=== PATIENT | female | born 1970 | race Hispanic/Latino ===

== ENCOUNTER 2021-04-23 20:48 | Emergency (ER) | payer OTHER ==
[2021-04-24] MEDS ORDERED: MEPERIDINE HCL 50 MG/ML ONE (02:07)
[2021-04-24] MEDS ORDERED: PROMETHAZINE INJ 25 MG/ML AMP ONE (02:08)
[2021-04-24] MEDS ORDERED: MEPERIDINE HCL 25 MG/ML SYR ONE (02:08)
--- NOTE | 2021-04-24 04:55 | EDPHYS ---
Physician Documentation [facility] Name: Effie Coleman Age: 51 yrs Sex: Female : 1970 Arrival Date: 04/23/2021 Time: 20:51 Bed 7 Private MD: ED Physician Kimani Syed HPI: 04/24 04:23 This 51 yrs old Female presents to ER via Ambulatory with complaints of pkl Shoulder Pain, Numbness Of Hand. 04:23 The patient or guardian complains of pain, that is acute. both shoulders. Onset: The pkl symptoms/episode began/occurred 1 week(s) ago. Associated signs and symptoms: Pertinent positives: neck pain, Numbness in left hand. INSURANCE VERIFICATION REP: 04/23 21:47 LMP 04/21/2021 vg1 Historical: - Allergies: 21:45 Percocet; vg1 21:45 [place]; vg1 21:45 meloxicam; vg1 - Home Meds: 21:45 Prozac Oral [Active]; cetirizine oral [Active]; diclofenac oral [Active]; vg1 - PMHx: 21:45 Arthritis; vg1 - Immunization history:: Adult Immunizations up to date, Client reports receiving the 2nd dose of the Covid vaccine. - Social history:: Smoking status: Reported history of juuling and/or vaping. ROS: 04/24 04:23 Eyes: Negative for injury, pain, redness, and discharge, ENT: Negative for injury, pkl pain, and discharge. Neck: Positive for pain with movement. Cardiovascular: Negative for chest pain. Respiratory: Negative for cough, shortness of breath. Abdomen/GI: Negative for abdominal pain, nausea, vomiting, and diarrhea. Back: Negative for acute changes. : Negative for urinary symptoms. MS/extremity: Positive for pain, of the both shoulder. Skin: Negative for rash. Neuro: Positive for numbness, of the left hand. Exam: 04:23 Head/Face: Normocephalic, atraumatic. Eyes: Pupils equal round and reactive to light, pkl extra-ocular motions intact. Lids and lashes normal. Conjunctiva and sclera are non-icteric and not injected. Cornea within normal limits. Periorbital areas with no swelling, redness, or edema. ENT: Nares patent. No nasal discharge, no septal abnormalities noted. Tympanic membranes are normal and external auditory canals are clear. Oropharynx with no redness, swelling, or masses, exudates, or evidence of obstruction, uvula midline. Mucous membranes moist. Neck: Trachea midline, no thyromegaly or masses palpated, and no cervical lymphadenopathy. Supple, full range of motion without nuchal rigidity, or vertebral point tenderness. No Meningismus. Chest/axilla: Normal chest wall appearance and motion. Nontender with no deformity. No lesions are appreciated. Cardiovascular: Regular rate and rhythm with a normal S1 and S2. No gallops, murmurs, or rubs. Normal PMI, no JVD. No pulse deficits. Respiratory: Lungs have equal breath sounds bilaterally, clear to auscultation and percussion. No rales, rhonchi or wheezes noted. No increased work of breathing, no retractions or nasal flaring. Abdomen/GI: Soft, non-tender, with normal bowel sounds. No distension or tympany. No guarding or rebound. No evidence of tenderness throughout. Back: No spinal tenderness. No costovertebral tenderness. Full range of motion. Skin: Warm, dry with normal turgor. Normal color with no rashes, no lesions, and no evidence of cellulitis. 04:23 Musculoskeletal/extremity: Extremities: grossly normal except: noted in the both shoulders: 04:23 Skin: Exam negative for rash. 04:23 Neuro: Orientation: is normal, Mentation: is normal, Cranial nerves: grossly normal, Motor: is normal, Sensation: numbness, that is mild, of the left hand. Vital Signs: 04/23 21:41 BP 133 / 86; Pulse 86; Resp 16; Temp 97.9; Pulse Ox 98% ; Weight 141.07 kg; Height 5 vg1 ft. 4 in. (162.56 cm); Pain 10/10; 04/24 04:48 BP 127 / 76; Pulse 80; Resp 18; Pulse Ox 99% ; ea 04/23 21:41 Body Mass Index 53.38 (141.07 kg, 162.56 cm) vg1 MDM: 00:30 Patient medically screened. pkl 04:50 Data reviewed: vital signs, nurses notes, radiologic studies, CT scan, plain films. ED pkl course: Discussed imaging studies with patient. Advised to follow up with Neurologist in 1 to 2 days. Patient understood instructions. 04/24 01:06 Order name: CT C Spine pkl 04/24 01:06 Order name: Shoulder Right (2 View) XRAY pkl 04/24 01:06 Order name: Shoulder Left (2 View) XRAY pkl Administered Medications: 02:00 Drug: Demerol (meperidine) 75 mg Route: IM; Site: left deltoid; em 03:20 Follow up: Response: No adverse reaction; Marked relief of symptoms; Pain is decreased em 02:00 Drug: Phenergan (promethazine) 12.5 mg Route: IM; Site: right deltoid; em 03:20 Follow up: Response: No adverse reaction; Marked relief of symptoms; Pain is decreased em Disposition Summary: 04/24/21 04:54 Discharge Ordered Location: Home pkl Problem: chronic pkl Symptoms: are unchanged pkl Condition: Stable pkl Diagnosis - Pain both shoulder. Multilevel degenerative changes cervical spines pkl Followup: pkl - With: Private Physician - When: 1 - 2 days - Reason: Re-evaluation by your physician Discharge Instructions: - Discharge Summary Sheet ea Forms: - Medication Reconciliation Form pkl - Thank You Letter pkl - Antibiotic Education pkl - Prescription Opioid Use pkl Prescriptions: - Tramadol 50 mg Oral Tablet - take 1 tablet by ORAL route every 8 hours as needed; 12 tablet; Refills: 0, pkl Product Selection Permitted Signatures: Dispatcher [employer] Kimani Henry MD MD pkl Morales Rosenberg RN RN Annamaria Glass RN RN vg1 Corrections: (The following items were deleted from the chart) 04:24 03:17 This 51 yrs old Female presents to ER via Ambulatory with complaints of pkl Shoulder Pain, Numbness Of Hand. pkl
--- NOTE | 2021-04-24 04:55 | ER ---
Nurse's Notes [facility] Name: Effie Coleman Age: 51 yrs Sex: Female : 1970 Arrival Date: 04/23/2021 Time: 20:51 Bed 7 Private MD: Diagnosis: Pain both shoulder. Multilevel degenerative changes cervical spines Presentation: 04/23 21:41 Chief complaint: Patient states: States Left hand numbness and ANANYA shoulder pain for vg1 about a week. Coronavirus screen: Client denies travel out of the [place] in the last 14 days. Ebola Screen: Patient negative for fever greater than or equal to 101.5 degrees Fahrenheit, and additional compatible Ebola Virus Disease symptoms. Initial Sepsis Screen: Does the patient meet any 2 criteria? No. Patient's initial sepsis screen is negative. Does the patient have a suspected source of infection? No. Patient's initial sepsis screen is negative. Risk Assessment: Do you want to hurt yourself or someone else? Patient reports no desire to harm self or others. Onset of symptoms was April 17, 2021. 21:41 Method Of Arrival: Ambulatory vg1 21:41 Acuity: TEO 4 vg1 Triage Assessment: 21:47 General: Appears in no apparent distress. uncomfortable, Behavior is calm, cooperative. vg1 Pain: Complains of pain in ANANYA shoulders and Left hand. COBBLER MCKAY: 21:47 LMP 04/21/2021 vg1 Historical: - Allergies: 21:45 Percocet; vg1 21:45 [place]; vg1 21:45 meloxicam; vg1 - Home Meds: 21:45 Prozac Oral [Active]; cetirizine oral [Active]; diclofenac oral [Active]; vg1 - PMHx: 21:45 Arthritis; vg1 - Immunization history:: Adult Immunizations up to date, Client reports receiving the 2nd dose of the Covid vaccine. - Social history:: Smoking status: Reported history of juuling and/or vaping. Screenin/02 00:30 Abuse screen: Denies threats or abuse. Nutritional screening: No deficits noted. em Tuberculosis screening: No symptoms or risk factors identified. Fall Risk None identified. Assessment: 04/23 21:10 Reassessment: Called pt to triage, no response. vg1 04/24 00:31 General: Appears in no apparent distress. comfortable, Behavior is calm, cooperative, em appropriate for age. Pain: Complains of pain in anterior aspect of right shoulder, anterior aspect of left shoulder and right hand Pain currently is 10 out of 10 on a pain scale. Neuro: Level of Consciousness is awake, alert, obeys commands, Oriented to person, place, time, situation. Cardiovascular: Capillary refill < 3 seconds Patient's skin is warm and dry. Respiratory: Airway is patent Respiratory effort is even, unlabored, Respiratory pattern is regular, symmetrical. GI: Patient currently denies nausea. Derm: Skin is intact, is healthy with good turgor, Skin is pink, warm \T\ dry. Musculoskeletal: Capillary refill < 3 seconds, Range of motion: intact in all extremities. 01:52 Reassessment: wheeled to CT. em 03:19 Reassessment: Patient appears in no apparent distress at this time. Patient and/or em family updated on plan of care and expected duration. Pain level reassessed. Patient is alert, oriented x 3, equal unlabored respirations, skin warm/dry/pink. Patient states feeling better. 04:50 Reassessment: Patient and/or family updated on plan of care and expected duration. Pain ea level reassessed. Patient is alert, oriented x 3, equal unlabored respirations, skin warm/dry/pink. Vital Signs: 04/23 21:41 BP 133 / 86; Pulse 86; Resp 16; Temp 97.9; Pulse Ox 98% ; Weight 141.07 kg; Height 5 vg1 ft. 4 in. (162.56 cm); Pain 10/10; 04/24 04:48 BP 127 / 76; Pulse 80; Resp 18; Pulse Ox 99% ; ea 04/23 21:41 Body Mass Index 53.38 (141.07 kg, 162.56 cm) vg1 ED Course: 04/23 20:51 Patient arrived in ED. wm 21:45 Triage completed. vg1 21:47 Arm band placed on Patient placed in waiting room, Patient notified of wait time. vg1 04/24 00:27 Morales Rosenberg, NEDRA is Primary Nurse. em 00:30 Kimani Syed MD is Attending Physician. pkl 00:30 Patient has correct armband on for positive identification. Bed in low position. Call em light in reach. 01:54 CT C Spine In Process Unspecified. EDMS 01:58 Shoulder Right (2 View) XRAY In Process Unspecified. EDMS 01:58 Shoulder Left (2 View) XRAY In Process Unspecified. EDMS 04:50 No provider procedures requiring assistance completed. ea 04:56 Patient did not have IV access during this emergency room visit. ea Administered Medications: 02:00 Drug: Demerol (meperidine) 75 mg Route: IM; Site: left deltoid; em 03:20 Follow up: Response: No adverse reaction; Marked relief of symptoms; Pain is decreased em 02:00 Drug: Phenergan (promethazine) 12.5 mg Route: IM; Site: right deltoid; em 03:20 Follow up: Response: No adverse reaction; Marked relief of symptoms; Pain is decreased em Outcome: 04:54 Discharge ordered by . ishan 04:55 Discharged to home ambulatory, with family. ea 04:55 Condition: stable 04:55 Discharge instructions given to patient, Instructed on discharge instructions, follow up and referral plans. medication usage, Demonstrated understanding of instructions, follow-up care, medications, Prescriptions given X 1. 04:56 Patient left the ED. ea Signatures: Dispatcher [employer] Kimani Henry MD MD pkl Munoz, Edgar, RN RN Nazia Jay RN RN Annamaria Betancourt RN RN Yazmin Cordoba
[2021-04-24 05:06] VITALS: TEMP 97.9
[2021-04-24 05:07] VITALS: BP 127/76; O2SAT 99
--- NOTE | 2021-04-24 08:58 | RAD REPORT ---
EXAM DESCRIPTION: RAD - Shoulder Left 2 View - 04/24/2021 1:58 am CLINICAL HISTORY: PAIN COMPARISON: No comparisons TECHNIQUE: Internal and external rotation views of the left shoulder were obtained. FINDINGS: There is no fracture or dislocation. Minimal AC joint degenerative changes are present wit hout inferiorly directed spurring. There is some minimal degenerative change to the greater tuberosit y. Acromial humeral joint space is maintained with no abnormal soft tissue calcifications. No acute o r suspicious findings. IMPRESSION: Negative two-view left shoulder examination for acute findings. Degenerative changes ar e mild.
--- NOTE | 2021-04-24 08:58 | RAD REPORT ---
EXAM DESCRIPTION: Shoulder Right 2 View - 04/24/2021 1:58 am CLINICAL HISTORY: PAIN COMPARISON: No comparisons TECHNIQUE: Internal and external rotation views of the right shoulder were obtained. FINDINGS: There is no fracture or dislocation. AC joint is normal in appearance. No measurable dege nerative changes are present. Acromial humeral joint space is maintained. No abnormal soft tissue jim cifications. IMPRESSION: Negative two-view right shoulder examination for acute or significant finding.
--- NOTE | 2021-04-24 09:50 | RAD REPORT ---
EXAM DESCRIPTION: CT - C Spine Wo Con - 04/24/2021 5:52 am CLINICAL HISTORY: 51 years Female radiculopathy; Pain TECHNIQUE: Noncontrast cervical spine CT with sagittal and coronal reconstructions. All CT scans at this facility use dose modulation, iterative reconstruction, and/or weight based dosing when appropri ate to reduce radiation dose to as low as reasonably achievable. COMPARISON: None FINDINGS: Vertebra: No acute fracture. Alignment: Normal. Degenerative: Multilevel degenerative changes. Broad right central disc protrusion at C2-C3 resulting in moderate spinal canal stenosis. Broad posterior disc osteophyte complex from C3-C4 through C6-C 7 resulting in mild spinal canal stenosis. Uncovertebral hypertrophy resulting severe bilateral C6-C7 neural foraminal narrowing. Soft tissues: Unremarkable. Lungs: Visualized lung apices are clear. IMPRESSION: 1. No acute osseous abnormality. 2. Multilevel degenerative changes with spinal canal stenosis and neuroforaminal narrowing as describ ed above. Recommend MRI for further evaluation. Electronically signed by: Jan Serrano MD 04/24/2021 2:23 AM CDT Due to temporary technical issues with the PACS/Fluency reporting system, reports are being signed by the in house radiologists without review as a courtesy to insure prompt reporting. The interpreting radiologist is fully responsible for the content of the report.
== END 2021-04-24 04:56 | disposition home or self-care (01) ==
LOC: ER 20:48
DX: M25.511 Pain in right shoulder (principal); R20.0 Anesthesia of skin; M54.2 Cervicalgia; Z88.5 Allergy status to narcotic agent; Z88.6 Allergy status to analgesic agent
CPT/HCPCS: 72125; 73030 ×2; J2550; J2175 ×2